=== PATIENT | male | born 1955 | race Caucasian/White ===

== ENCOUNTER 2023-02-27 16:32 | Inpatient (IN) | payer MEDICARE, MEDICAID ==
[~2023-02-27] VITALS: Ht 170.2 cm; Wt 65.8 kg
[2023-02-27] MEDS ORDERED: NS 1,850 ML in IV 1 EA IV ONE (16:55)
[2023-02-27 17:05] LABS: VENOUS BASE EXCESS 7.1 (-2.0-2.0); VENOUS HCO3 33.3 MMOL/L (23.0-27.0); VENOUS O2 SATURATION 49.4 % (60.0-80.0); VENOUS PARTIAL PRESSURE CO2 55.3 mmHg (38.0-50.0); VENOUS PARTIAL PRESSURE O2 30.7 mmHg (30.0-50.0); VENOUS PH 7.397 UNITS (7.330-7.430)
[2023-02-27 17:15] LABS: HEMATOCRIT 30.5 % (42.0-52.0); HEMOGLOBIN 9.7 g/dl (13.5-17.5); MEAN CORPUSCULAR HEMOGLOBIN 31.5 pg (27.0-33.0); MEAN CORPUSCULAR HGB CONC 31.8 g/dl (32.0-36.5); PLATELET COUNT, AUTOMATED 283 10^3/uL (150-450); RED BLOOD COUNT 3.08 10^6/uL (4.30-6.10); WHITE BLOOD COUNT 21.8 10^3/uL (4.0-10.0)
[2023-02-27 17:26] LABS: INR 1.34; PROTHROMBIN TIME 16.2 SECONDS (12.5-14.5)
[2023-02-27 17:28] LABS: PARTIAL THROMBOPLASTIN TIME 30.7 SECONDS (24.8-34.2)
[2023-02-27 17:40] LABS: ATYPICAL LYMPH 2 % (0-5); LYMPHOCYTES 6 % (16-44); METAMYELOCYTES 1 % (0-0); NEUTROPHILS 67 % (28-66); PLATELET ESTIMATE NORMAL (NORMAL)
[2023-02-27] MEDS ORDERED: cefTRIAXone SOD 2 GM in D5W MINI-BAG PLUS 50 ML IV ONE (17:40)
[2023-02-27] MEDS ORDERED: AZITHROMYCIN INJ 500 MG, VIAL MATE ADAPTER 1 EACH in D5W 250 ML IV ONE (17:40)
[2023-02-27 17:44] LABS: ALBUMIN 1.7 G/DL (3.2-5.2); ALKALINE PHOSPHATASE 226 U/L (46-116); ALT/SGPT 56 U/L (7.0-40); AMYLASE 108 U/L (30-118); AST/SGOT 51 U/L (<34); BILIRUBIN,DIRECT 0.7 MG/DL (<0.4); BLOOD UREA NITROGEN 26 MG/DL (9-23); CALCIUM LEVEL 13.4 MG/DL (8.3-10.6); CARBON DIOXIDE LEVEL 36 MMOL/L (20-31); CHLORIDE LEVEL 96 MMOL/L (98-107); GLOMERULAR FILTRATION RATE > 60.0 (>49); GLUCOSE, FASTING 122 MG/DL (74-106); POTASSIUM SERUM 3.9 MMOL/L (3.5-5.1); SODIUM LEVEL 135 MMOL/L (136-145); TOTAL PROTEIN 6.2 G/DL (5.7-8.2)
[2023-02-27 17:50] LABS: PROCALCITONIN 0.57 ng/ml
[2023-02-27] MEDS ORDERED: DOXYCYCLINE HYCLATE 100 MG in D5W MINI-BAG PLUS 100 ML IV ONE (17:50)
[2023-02-27] MEDS ORDERED: MED REC IN PROGRESS XX SCH (18:40)
[2023-02-27] MEDS ORDERED: COMBIVENT RESPIMAT 100-20MCG INHALER 4GM INH PRN (18:50)
[2023-02-27] MEDS ORDERED: D 50CAP2 PO (19:07)
[2023-02-27] MEDS ORDERED: NADO20TA PO (19:07)
[2023-02-27] MEDS ORDERED: ALBU8.5H INH (19:07)
[2023-02-27] MEDS ORDERED: MAGN400T2 PO (19:07)
[2023-02-27] MEDS ORDERED: DOCU100C16 PO (19:07)
[2023-02-27] MEDS ORDERED: SIMVASTATIN 80 MG PO (19:07)
[2023-02-27] MEDS ORDERED: TAMS1CAP17 PO (19:07)
[2023-02-27] MEDS ORDERED: THIA100T22 PO (19:07)
[2023-02-27] MEDS ORDERED: SPIR100T3 PO (19:07)
[2023-02-27] MEDS ORDERED: GABA-1171 PO (19:07)
[2023-02-27] MEDS ORDERED: FINA5TAB2 PO (19:07)
[2023-02-27] MEDS ORDERED: SIMV (19:07)
[2023-02-27] MEDS ORDERED: FURO40TA2 PO (19:07)
[2023-02-27 19:29] LABS: APPEARANCE, URINE CLOUDY (CLEAR); BACTERIA, URINE AUTO 2+ (NEGATIVE); BILIRUBIN, URINE AUTO NEGATIVE (NEGATIVE); BLOOD, URINE BLOOD 3+ (NEGATIVE); COLOR, URINE AMBER (YELLOW); GLUCOSE, URINE (UA) AUTO NEGATIVE (NEGATIVE); KETONE, URINE AUTO NEGATIVE (NEGATIVE); LEUKOCYTE ESTERASE, URINE AUTO 3+ (NEGATIVE); NITRITE, URINE AUTO NEGATIVE (NEGATIVE); PROTEIN, URINE AUTO 1+ mg/dL (NEGATIVE); RBC, URINE AUTO TNTC /HPF (0-3); SPECIFIC GRAVITY URINE AUTO 1.016 (1.002-1.035); SQUAMOUS EPITHELIAL CELL UR AU 0 /HPF (0-6); WBC, URINE AUTO TNTC /HPF (0-3)
[2023-02-27] MEDS: NS 1,000 ML IV SCH ×2 (20:12→22:06)
[2023-02-27 20:17] LABS: THYROID STIMULATING HORMONE 1.316 uIU/ML (0.55-4.78)
[2023-02-27 20:18] LABS: FREE T4 1.28 NG/DL (0.89-1.76)
[2023-02-27] MEDS ORDERED: ALBUTEROL 90 MCG/ACT 8GM HFA INHALER INH PRN (21:00)
[2023-02-27] MEDS ORDERED: SIMVASTATIN 40 MG TAB PO SCH (21:00)
[2023-02-27] MEDS: DOXYCYCLINE HYCLATE 100MG TABLET PO SCH ×2 (21:00→21:16)
[2023-02-27] MEDS ORDERED: HOME MED LIST COMPLETE! XX SCH (21:00)
[2023-02-27] MEDS: GABAPENTIN 100 MG CAP PO SCH (21:15)
[2023-02-27] MEDS: guaiFENesin ER TABLET 600 MG TAB PO SCH (21:16)
[2023-02-28] VITALS (47 sets, daily range): BP systolic 82–109; BP diastolic 42–68; TEMP 96.1–97.8; O2SAT 89–99
[2023-02-28] MEDS: NS 1,000 ML IV SCH (03:44)
[2023-02-28] MEDS ORDERED: NS 500 ML IV ONE ×2 (04:10→06:00)
[2023-02-28] MEDS ORDERED: SODIUM CHLORIDE 0.9% 1000ML IV STA (05:12)
[2023-02-28 05:27] LABS: HEMATOCRIT 24.4 % (42.0-52.0); HEMOGLOBIN 7.6 g/dl (13.5-17.5); MEAN CORPUSCULAR HEMOGLOBIN 31.1 pg (27.0-33.0); MEAN CORPUSCULAR HGB CONC 31.1 g/dl (32.0-36.5); PLATELET COUNT, AUTOMATED 201 10^3/uL (150-450); RED BLOOD COUNT 2.44 10^6/uL (4.30-6.10); WHITE BLOOD COUNT 16.2 10^3/uL (4.0-10.0)
[2023-02-28 05:43] LABS: PROCALCITONIN 0.49 ng/ml
[2023-02-28 05:44] LABS: ALBUMIN 1.3 G/DL (3.2-5.2); ALKALINE PHOSPHATASE 187 U/L (46-116); ALT/SGPT 47 U/L (7.0-40); AST/SGOT 50 U/L (<34); BILIRUBIN,TOTAL 0.6 MG/DL (0.3-1.2); BLOOD UREA NITROGEN 21 MG/DL (9-23); CARBON DIOXIDE LEVEL 30 MMOL/L (20-31); CHLORIDE LEVEL 106 MMOL/L (98-107); CREATININE FOR GFR 0.59 MG/DL (0.70-1.30); GLOMERULAR FILTRATION RATE > 60.0 (>49); GLUCOSE, FASTING 107 MG/DL (74-106); POTASSIUM SERUM 3.5 MMOL/L (3.5-5.1); SODIUM LEVEL 140 MMOL/L (136-145); TOTAL PROTEIN 4.6 G/DL (5.7-8.2)
[2023-02-28 06:22] LABS: PERCENT SATURATION 6.5 % (19.7-50.0)
[2023-02-28 06:24] LABS: FERRITIN 61.3 NG/ML (10.5-307.3)
[2023-02-28 06:25] LABS: FOLATE 10.65 NG/ML (>5.4)
[2023-02-28 06:30] LABS: MAGNESIUM LEVEL 1.4 MG/DL (1.8-2.4)
[2023-02-28] MEDS ORDERED: VANCOMYCIN HCL 1,000 MG, VIAL MATE ADAPTER 1 EACH in D5W 250 ML IV ONE (09:00)
[2023-02-28] MEDS ORDERED: NADOLOL 20MG TABLET PO SCH (09:00)
[2023-02-28] MEDS ORDERED: TAMSULOSIN 0.4 MG CAP PO SCH (09:00)
[2023-02-28] MEDS ORDERED: ENOXAPARIN 40MG/0.4ML SYRINGE (J1650 PER 10MG) SC SCH (09:00)
[2023-02-28] MEDS ORDERED: FINASTERIDE 5MG TAB PO SCH (09:00)
[2023-02-28] MEDS: MAGNESIUM OXIDE 400MG TAB (MAG-OX) PO SCH (09:28)
[2023-02-28] MEDS: THIAMINE 100 MG TAB PO SCH (09:28)
[2023-02-28] MEDS: GABAPENTIN 100 MG CAP PO SCH ×3 (09:28→20:27)
[2023-02-28] MEDS: guaiFENesin ER TABLET 600 MG TAB PO SCH ×2 (09:28→20:27)
[2023-02-28] MEDS: guaiFENesin DM LIQ 10ML UD PO PRN (10:44)
[2023-02-28] MEDS ORDERED: NS 1,000 ML IV ONE ×3 (12:00→18:05)
[2023-02-28] MEDS: DOXYCYCLINE HYCLATE 100MG TABLET PO SCH ×2 (12:22→20:27)
[2023-02-28] MEDS: VANCOMYCIN HCL 1,000 MG, VIAL MATE ADAPTER 1 EACH in D5W 250 ML IV SCH (13:12)
[2023-02-28] MEDS: MAG SULF 1GM/100ML (MAG RUN) 1 GM in IV 1 EA IV SCH ×3 (13:12→15:28)
[2023-02-28 15:14] LABS: HEMATOCRIT 28.1 % (42.0-52.0); HEMOGLOBIN 8.8 g/dl (13.5-17.5)
[2023-02-28] MEDS: cefTRIAXone SOD 2 GM in D5W MINI-BAG PLUS 50 ML IV SCH (17:19)
[2023-03-01] VITALS (21 sets, daily range): BP systolic 100–116; BP diastolic 56–68; TEMP 97–98; O2SAT 89–96
[2023-03-01] MEDS: VANCOMYCIN HCL 1,000 MG, VIAL MATE ADAPTER 1 EACH in D5W 250 ML IV SCH (00:34)
[2023-03-01 04:28] LABS: BASO # 0.1 10^3/uL (0.0-0.2); BASO % 0.4 % (0.0-1.0); EOS # 0.3 10^3/uL (0.0-0.5); EOS % 1.7 % (0.0-3.0); HEMOGLOBIN 9.7 g/dl (13.5-17.5); LYMPH # 1.2 10^3/uL (1.5-5.0); LYMPH % 7.9 % (24.0-44.0); MEAN CORPUSCULAR HGB CONC 32.3 g/dl (32.0-36.5); MEAN CORPUSCULAR VOLUME 95.8 fl (80.0-96.0); MONO # 1.1 10^3/uL (0.0-0.8); MONO % 7.7 % (2.0-8.0); NEUTROPHILS # 11.8 10^3/uL (1.5-8.5); NEUTROPHILS % 80.9 % (36.0-66.0); PLATELET COUNT, AUTOMATED 218 10^3/uL (150-450); RED BLOOD COUNT 3.13 10^6/uL (4.30-6.10); WHITE BLOOD COUNT 14.5 10^3/uL (4.0-10.0)
[2023-03-01 04:57] LABS: ALBUMIN 1.2 G/DL (3.2-5.2); ALKALINE PHOSPHATASE 289 U/L (46-116); ALT/SGPT 81 U/L (7.0-40); AST/SGOT 118 U/L (<34); BILIRUBIN,TOTAL 0.6 MG/DL (0.3-1.2); BLOOD UREA NITROGEN 15 MG/DL (9-23); CALCIUM LEVEL 10.4 MG/DL (8.3-10.6); CARBON DIOXIDE LEVEL 26 MMOL/L (20-31); CHLORIDE LEVEL 109 MMOL/L (98-107); CREATININE FOR GFR 0.48 MG/DL (0.70-1.30); GLOMERULAR FILTRATION RATE > 60.0 (>49); GLUCOSE, FASTING 96 MG/DL (74-106); MAGNESIUM LEVEL 1.6 MG/DL (1.8-2.4); POTASSIUM SERUM 3.4 MMOL/L (3.5-5.1); SODIUM LEVEL 139 MMOL/L (136-145); TOTAL PROTEIN 4.6 G/DL (5.7-8.2)
[2023-03-01] MEDS: KCL 10MEQ/100ML SWI (KRUN) 10 MEQ in IV 1 EA IV SCH ×2 (05:35→06:46)
[2023-03-01] MEDS ORDERED: MAG SULF 1GM/100ML (MAG RUN) 1 GM in IV 1 EA IV ONE (06:00)
[2023-03-01] MEDS: THIAMINE 100 MG TAB PO SCH (09:14)
[2023-03-01] MEDS: MAGNESIUM OXIDE 400MG TAB (MAG-OX) PO SCH (09:14)
[2023-03-01] MEDS: GABAPENTIN 100 MG CAP PO SCH ×3 (09:14→20:04)
[2023-03-01] MEDS: DOXYCYCLINE HYCLATE 100MG TABLET PO SCH ×2 (09:14→20:04)
[2023-03-01] MEDS: guaiFENesin ER TABLET 600 MG TAB PO SCH ×2 (09:15→20:04)
[2023-03-01] MEDS: ENOXAPARIN 40MG/0.4ML SYRINGE (J1650 PER 10MG) SC SCH (10:58)
[2023-03-01] MEDS: VANCOMYCIN HCL 750 MG, VIAL MATE ADAPTER 1 EACH in D5W 250 ML IV SCH (14:44)
[2023-03-01] MEDS: cefTRIAXone SOD 2 GM in D5W MINI-BAG PLUS 50 ML IV SCH (18:11)
[2023-03-01 19:06] LABS: MYCOPLASMA PNEUMONIAE IgG 1559 U/mL (0-99); MYCOPLASMA PNEUMONIAE IgM <770 U/mL (0-769)
[2023-03-02] VITALS (12 sets, daily range): BP systolic 109–131; BP diastolic 58–77; TEMP 96.5–97.5; O2SAT 90–96
[2023-03-02] MEDS: VANCOMYCIN HCL 750 MG, VIAL MATE ADAPTER 1 EACH in D5W 250 ML IV SCH ×2 (01:28→13:22)
[2023-03-02] MEDS ORDERED: MAALOX 30 ML SUSP *UDC PO PRN (07:45)
[2023-03-02] MEDS: ENOXAPARIN 40MG/0.4ML SYRINGE (J1650 PER 10MG) SC SCH (09:30)
[2023-03-02] MEDS: THIAMINE 100 MG TAB PO SCH (09:30)
[2023-03-02] MEDS: DOXYCYCLINE HYCLATE 100MG TABLET PO SCH ×2 (09:30→22:31)
[2023-03-02] MEDS: GABAPENTIN 100 MG CAP PO SCH ×3 (09:30→22:31)
[2023-03-02] MEDS: guaiFENesin ER TABLET 600 MG TAB PO SCH ×2 (09:30→22:31)
[2023-03-02] MEDS: MAGNESIUM OXIDE 400MG TAB (MAG-OX) PO SCH (09:31)
[2023-03-02] MEDS: PANTOPRAZOLE 40MG TAB (PROTONIX) PO SCH ×2 (09:31→22:32)
[2023-03-02 09:40] LABS: BASO # 0.1 10^3/uL (0.0-0.2); BASO % 0.5 % (0.0-1.0); EOS # 0.2 10^3/uL (0.0-0.5); EOS % 1.5 % (0.0-3.0); HEMATOCRIT 30.8 % (42.0-52.0); HEMOGLOBIN 9.8 g/dl (13.5-17.5); LYMPH # 1.4 10^3/uL (1.5-5.0); MEAN CORPUSCULAR HEMOGLOBIN 30.3 pg (27.0-33.0); MEAN CORPUSCULAR HGB CONC 31.8 g/dl (32.0-36.5); MEAN CORPUSCULAR VOLUME 95.4 fl (80.0-96.0); MONO # 0.8 10^3/uL (0.0-0.8); MONO % 5.6 % (2.0-8.0); NEUTROPHILS # 11.7 10^3/uL (1.5-8.5); NEUTROPHILS % 80.9 % (36.0-66.0); PLATELET COUNT, AUTOMATED 247 10^3/uL (150-450); RED BLOOD COUNT 3.23 10^6/uL (4.30-6.10); WHITE BLOOD COUNT 14.4 10^3/uL (4.0-10.0)
[2023-03-02 10:07] LABS: BLOOD UREA NITROGEN 11 MG/DL (9-23); CALCIUM LEVEL 10.9 MG/DL (8.3-10.6); CARBON DIOXIDE LEVEL 28 MMOL/L (20-31); CHLORIDE LEVEL 105 MMOL/L (98-107); CREATININE FOR GFR 0.47 MG/DL (0.70-1.30); GLOMERULAR FILTRATION RATE > 60.0 (>49); GLUCOSE, FASTING 110 MG/DL (74-106); MAGNESIUM LEVEL 1.4 MG/DL (1.8-2.4); POTASSIUM SERUM 3.3 MMOL/L (3.5-5.1); SODIUM LEVEL 138 MMOL/L (136-145)
[2023-03-02] MEDS: ACETAMINOPHEN TAB 650MG DOSE (2X325MG) PO PRN ×2 (13:22→19:51)
[2023-03-02] MEDS: cefTRIAXone SOD 2 GM in D5W MINI-BAG PLUS 50 ML IV SCH (17:43)
[2023-03-02] MEDS ORDERED: POTASSIUM CHLORIDE 10% LIQ 20MEQ/15ML UDC PO ONE (18:00)
[2023-03-02] MEDS: MAG SULF 1GM/100ML (MAG RUN) 1 GM in IV 1 EA IV SCH ×4 (18:28→23:56)
[2023-03-03] VITALS (8 sets, daily range): BP systolic 89–137; BP diastolic 52–85; TEMP 96.5–97.2; O2SAT 93–96
[2023-03-03] MEDS: VANCOMYCIN HCL 750 MG, VIAL MATE ADAPTER 1 EACH in D5W 250 ML IV SCH ×2 (02:18→14:04)
[2023-03-03 06:14] LABS: BASO # 0.1 10^3/uL (0.0-0.2); BASO % 0.5 % (0.0-1.0); EOS # 0.2 10^3/uL (0.0-0.5); EOS % 1.6 % (0.0-3.0); HEMATOCRIT 31.1 % (42.0-52.0); LYMPH # 1.2 10^3/uL (1.5-5.0); LYMPH % 13.3 % (24.0-44.0); MEAN CORPUSCULAR HEMOGLOBIN 30.7 pg (27.0-33.0); MEAN CORPUSCULAR HGB CONC 32.2 g/dl (32.0-36.5); MEAN CORPUSCULAR VOLUME 95.4 fl (80.0-96.0); MONO # 0.6 10^3/uL (0.0-0.8); MONO % 6.6 % (2.0-8.0); NEUTROPHILS # 7.1 10^3/uL (1.5-8.5); NEUTROPHILS % 76.1 % (36.0-66.0); PLATELET COUNT, AUTOMATED 205 10^3/uL (150-450); RED BLOOD COUNT 3.26 10^6/uL (4.30-6.10); WHITE BLOOD COUNT 9.3 10^3/uL (4.0-10.0)
[2023-03-03 06:41] LABS: ALBUMIN 1.4 G/DL (3.2-5.2); ALKALINE PHOSPHATASE 232 U/L (46-116); ALT/SGPT 70 U/L (7.0-40); AST/SGOT 47 U/L (<34); BILIRUBIN,TOTAL 0.4 MG/DL (0.3-1.2); BLOOD UREA NITROGEN 8 MG/DL (9-23); CALCIUM LEVEL 10.3 MG/DL (8.3-10.6); CARBON DIOXIDE LEVEL 29 MMOL/L (20-31); CHLORIDE LEVEL 105 MMOL/L (98-107); CREATININE FOR GFR 0.49 MG/DL (0.70-1.30); GLOMERULAR FILTRATION RATE > 60.0 (>49); GLUCOSE, FASTING 98 MG/DL (74-106); POTASSIUM SERUM 3.8 MMOL/L (3.5-5.1); SODIUM LEVEL 138 MMOL/L (136-145)
[2023-03-03 09:15] LABS: MAGNESIUM LEVEL 2.1 MG/DL (1.8-2.4)
[2023-03-03] MEDS: MIDODRINE 2.5 MG TAB PO SCH ×3 (10:09→16:14)
[2023-03-03] MEDS: ENOXAPARIN 40MG/0.4ML SYRINGE (J1650 PER 10MG) SC SCH (10:09)
[2023-03-03] MEDS: SPIRONOLACTONE 25 MG TAB PO SCH (10:10)
[2023-03-03] MEDS: MAGNESIUM OXIDE 400MG TAB (MAG-OX) PO SCH (10:10)
[2023-03-03] MEDS: ACETAMINOPHEN TAB 650MG DOSE (2X325MG) PO PRN (10:10)
[2023-03-03] MEDS: THIAMINE 100 MG TAB PO SCH (10:11)
[2023-03-03] MEDS: TAMSULOSIN 0.4 MG CAP PO SCH (10:11)
[2023-03-03] MEDS: DOXYCYCLINE HYCLATE 100MG TABLET PO SCH ×2 (10:11→20:26)
[2023-03-03] MEDS: GABAPENTIN 100 MG CAP PO SCH ×3 (10:11→20:26)
[2023-03-03] MEDS: guaiFENesin ER TABLET 600 MG TAB PO SCH ×2 (10:11→20:26)
[2023-03-03] MEDS: FUROSEMIDE 20 MG TAB PO SCH (10:11)
[2023-03-03] MEDS: PANTOPRAZOLE 40MG TAB (PROTONIX) PO SCH ×2 (10:12→20:26)
[2023-03-03] MEDS: FINASTERIDE 5MG TAB PO SCH (10:12)
[2023-03-03] MEDS ORDERED: ISOVUE-370 76% 100ML VIAL As Ordered ONE (10:16)
[2023-03-03] MEDS: cefTRIAXone SOD 2 GM in D5W MINI-BAG PLUS 50 ML IV SCH (18:40)
[2023-03-03] MEDS ORDERED: MIDODRINE 5 MG TAB PO ONE (21:00)
[2023-03-04 01:30] VITALS: BP 102/64
[2023-03-04] MEDS: VANCOMYCIN HCL 750 MG, VIAL MATE ADAPTER 1 EACH in D5W 250 ML IV SCH (01:51)
[2023-03-04] MEDS: ACETAMINOPHEN TAB 650MG DOSE (2X325MG) PO PRN ×3 (03:35→20:48)
[2023-03-04 05:44] VITALS: BP 105/66; TEMP 97.3; O2SAT 94
[2023-03-04 06:10] LABS: BASO # 0.1 10^3/uL (0.0-0.2); BASO % 0.5 % (0.0-1.0); EOS # 0.1 10^3/uL (0.0-0.5); EOS % 1.2 % (0.0-3.0); HEMATOCRIT 29.9 % (42.0-52.0); HEMOGLOBIN 9.4 g/dl (13.5-17.5); LYMPH # 1.4 10^3/uL (1.5-5.0); LYMPH % 14.1 % (24.0-44.0); MEAN CORPUSCULAR HEMOGLOBIN 30.3 pg (27.0-33.0); MEAN CORPUSCULAR HGB CONC 31.4 g/dl (32.0-36.5); MEAN CORPUSCULAR VOLUME 96.5 fl (80.0-96.0); MONO # 0.6 10^3/uL (0.0-0.8); MONO % 6.2 % (2.0-8.0); NEUTROPHILS # 7.8 10^3/uL (1.5-8.5); NEUTROPHILS % 76.9 % (36.0-66.0); PLATELET COUNT, AUTOMATED 192 10^3/uL (150-450); WHITE BLOOD COUNT 10.1 10^3/uL (4.0-10.0)
[2023-03-04 06:30] LABS: ALBUMIN 1.4 G/DL (3.2-5.2); ALKALINE PHOSPHATASE 193 U/L (46-116); ALT/SGPT 50 U/L (7.0-40); AST/SGOT 33 U/L (<34); BILIRUBIN,TOTAL 0.3 MG/DL (0.3-1.2); BLOOD UREA NITROGEN 7 MG/DL (9-23); CALCIUM LEVEL 10.1 MG/DL (8.3-10.6); CARBON DIOXIDE LEVEL 32 MMOL/L (20-31); CHLORIDE LEVEL 103 MMOL/L (98-107); GLOMERULAR FILTRATION RATE > 60.0 (>49); GLUCOSE, FASTING 88 MG/DL (74-106); POTASSIUM SERUM 3.5 MMOL/L (3.5-5.1); SODIUM LEVEL 139 MMOL/L (136-145); TOTAL PROTEIN 4.8 G/DL (5.7-8.2)
[2023-03-04] MEDS: THIAMINE 100 MG TAB PO SCH (08:20)
[2023-03-04] MEDS: GABAPENTIN 100 MG CAP PO SCH ×3 (08:20→20:47)
[2023-03-04] MEDS: FINASTERIDE 5MG TAB PO SCH (08:20)
[2023-03-04] MEDS: TAMSULOSIN 0.4 MG CAP PO SCH (08:21)
[2023-03-04] MEDS: PANTOPRAZOLE 40MG TAB (PROTONIX) PO SCH ×2 (08:21→20:48)
[2023-03-04] MEDS: MIDODRINE 2.5 MG TAB PO SCH ×3 (08:22→15:21)
[2023-03-04] MEDS: guaiFENesin ER TABLET 600 MG TAB PO SCH ×2 (08:22→20:48)
[2023-03-04] MEDS: MAGNESIUM OXIDE 400MG TAB (MAG-OX) PO SCH (08:23)
[2023-03-04] MEDS: ENOXAPARIN 40MG/0.4ML SYRINGE (J1650 PER 10MG) SC SCH (08:23)
[2023-03-04] MEDS: DOXYCYCLINE HYCLATE 100MG TABLET PO SCH ×2 (08:23→20:48)
[2023-03-04] MEDS: FUROSEMIDE 20 MG TAB PO SCH (08:24)
[2023-03-04] MEDS: SPIRONOLACTONE 25 MG TAB PO SCH (08:24)
[2023-03-04] MEDS ORDERED: VANCOMYCIN HCL 750 MG, VIAL MATE ADAPTER 1 EACH in D5W 250 ML IV SCH ×6 (15:00)
[2023-03-04] MEDS ORDERED: VANCOMYCIN HCL 1,000 MG, VIAL MATE ADAPTER 1 EACH in D5W 250 ML IV SCH (15:00)
[2023-03-04 15:22] VITALS: BP 112/68; TEMP 97.3; O2SAT 96
[2023-03-04 18:07] LABS: BODY FLUID CULTURE Not indicated. (.); LEGIONELLA ANTIGEN URINE Negative (Negative); ORGANISM ID Not indicated. (.); SPECIMEN SOURCE Urine (.); URINE STREP PNEUMONIAE ANTIGEN Negative (Negative)
[2023-03-04] MEDS: cefTRIAXone SOD 2 GM in D5W MINI-BAG PLUS 50 ML IV SCH (18:36)
[2023-03-04 20:45] VITALS: BP 129/69; TEMP 97.3; O2SAT 95
[2023-03-05 05:26] VITALS: BP 127/76; TEMP 97; O2SAT 97
[2023-03-05 07:13] LABS: BASO # 0.1 10^3/uL (0.0-0.2); BASO % 0.6 % (0.0-1.0); EOS # 0.1 10^3/uL (0.0-0.5); EOS % 1.8 % (0.0-3.0); HEMATOCRIT 31.8 % (42.0-52.0); HEMOGLOBIN 9.9 g/dl (13.5-17.5); LYMPH # 1.2 10^3/uL (1.5-5.0); LYMPH % 15.8 % (24.0-44.0); MEAN CORPUSCULAR HEMOGLOBIN 30.2 pg (27.0-33.0); MEAN CORPUSCULAR HGB CONC 31.1 g/dl (32.0-36.5); MONO # 0.5 10^3/uL (0.0-0.8); MONO % 6.6 % (2.0-8.0); NEUTROPHILS # 5.8 10^3/uL (1.5-8.5); NEUTROPHILS % 74.1 % (36.0-66.0); PLATELET COUNT, AUTOMATED 182 10^3/uL (150-450); RED BLOOD COUNT 3.28 10^6/uL (4.30-6.10); WHITE BLOOD COUNT 7.8 10^3/uL (4.0-10.0)
[2023-03-05 07:33] LABS: ALBUMIN 1.5 G/DL (3.2-5.2); ALKALINE PHOSPHATASE 184 U/L (46-116); ALT/SGPT 41 U/L (7.0-40); AST/SGOT 27 U/L (<34); BILIRUBIN,TOTAL 0.3 MG/DL (0.3-1.2); BLOOD UREA NITROGEN 6 MG/DL (9-23); CALCIUM LEVEL 11.1 MG/DL (8.3-10.6); CARBON DIOXIDE LEVEL 34 MMOL/L (20-31); CHLORIDE LEVEL 103 MMOL/L (98-107); CREATININE FOR GFR 0.61 MG/DL (0.70-1.30); GLOMERULAR FILTRATION RATE > 60.0 (>49); GLUCOSE, FASTING 86 MG/DL (74-106); POTASSIUM SERUM 3.5 MMOL/L (3.5-5.1); SODIUM LEVEL 139 MMOL/L (136-145)
[2023-03-05] MEDS: MIRALAX *UNIT DOSE* 17GM PACKET PO SCH ×2 (09:00→20:31)
[2023-03-05] MEDS: METAMUCIL (PSYLLIUM) PACKET PO SCH ×2 (09:00→20:31)
[2023-03-05] MEDS: ENOXAPARIN 40MG/0.4ML SYRINGE (J1650 PER 10MG) SC SCH (09:19)
[2023-03-05] MEDS: MIDODRINE 2.5 MG TAB PO SCH ×3 (09:19→17:22)
[2023-03-05] MEDS: guaiFENesin ER TABLET 600 MG TAB PO SCH ×2 (09:19→20:35)
[2023-03-05] MEDS: THIAMINE 100 MG TAB PO SCH (09:19)
[2023-03-05] MEDS: SPIRONOLACTONE 25 MG TAB PO SCH (09:19)
[2023-03-05] MEDS: PANTOPRAZOLE 40MG TAB (PROTONIX) PO SCH ×2 (09:20→20:35)
[2023-03-05] MEDS: TAMSULOSIN 0.4 MG CAP PO SCH (09:20)
[2023-03-05] MEDS: MAGNESIUM OXIDE 400MG TAB (MAG-OX) PO SCH (09:20)
[2023-03-05] MEDS: GABAPENTIN 100 MG CAP PO SCH ×3 (09:20→20:36)
[2023-03-05] MEDS: FUROSEMIDE 20 MG TAB PO SCH (09:20)
[2023-03-05] MEDS: ACETAMINOPHEN TAB 650MG DOSE (2X325MG) PO PRN ×2 (09:21→20:47)
[2023-03-05] MEDS: FINASTERIDE 5MG TAB PO SCH (09:22)
[2023-03-05 14:00] VITALS: BP 107/66; TEMP 97.2; O2SAT 97
[2023-03-05 14:41] LABS: PTH INTACT 7.1 PG/ML (18.5-88.0)
[2023-03-05 14:46] LABS: TOTAL 25(OH) VITAMIN D 132.2 NG/ML (20.0-100.0)
[2023-03-05] MEDS: cefTRIAXone SOD 2 GM in D5W MINI-BAG PLUS 50 ML IV SCH (17:22)
[2023-03-05 21:57] VITALS: BP 108/65; TEMP 97.3; O2SAT 95
[2023-03-06 06:10] LABS: BASO # 0.1 10^3/uL (0.0-0.2); BASO % 0.7 % (0.0-1.0); EOS # 0.1 10^3/uL (0.0-0.5); EOS % 1.9 % (0.0-3.0); HEMATOCRIT 32.6 % (42.0-52.0); HEMOGLOBIN 10.2 g/dl (13.5-17.5); LYMPH # 1.3 10^3/uL (1.5-5.0); LYMPH % 19.3 % (24.0-44.0); MEAN CORPUSCULAR HEMOGLOBIN 30.4 pg (27.0-33.0); MEAN CORPUSCULAR HGB CONC 31.3 g/dl (32.0-36.5); MEAN CORPUSCULAR VOLUME 97.3 fl (80.0-96.0); MONO # 0.4 10^3/uL (0.0-0.8); MONO % 5.3 % (2.0-8.0); NEUTROPHILS # 4.9 10^3/uL (1.5-8.5); NEUTROPHILS % 71.9 % (36.0-66.0); PLATELET COUNT, AUTOMATED 170 10^3/uL (150-450); RED BLOOD COUNT 3.35 10^6/uL (4.30-6.10); WHITE BLOOD COUNT 6.8 10^3/uL (4.0-10.0)
[2023-03-06 06:37] LABS: ALBUMIN 1.5 G/DL (3.2-5.2); ALKALINE PHOSPHATASE 176 U/L (46-116); ALT/SGPT 34 U/L (7.0-40); AST/SGOT 25 U/L (<34); BILIRUBIN,TOTAL 0.3 MG/DL (0.3-1.2); BLOOD UREA NITROGEN 8 MG/DL (9-23); CARBON DIOXIDE LEVEL 36 MMOL/L (20-31); CHLORIDE LEVEL 102 MMOL/L (98-107); CREATININE FOR GFR 0.72 MG/DL (0.70-1.30); GLOMERULAR FILTRATION RATE > 60.0 (>49); GLUCOSE, FASTING 82 MG/DL (74-106); POTASSIUM SERUM 3.6 MMOL/L (3.5-5.1); SODIUM LEVEL 139 MMOL/L (136-145); TOTAL PROTEIN 5.1 G/DL (5.7-8.2)
[2023-03-06 06:43] VITALS: BP 111/64; TEMP 97.3; O2SAT 92
[2023-03-06] MEDS: MIRALAX *UNIT DOSE* 17GM PACKET PO SCH ×2 (09:00→20:16)
[2023-03-06] MEDS: METAMUCIL (PSYLLIUM) PACKET PO SCH ×2 (09:00→20:16)
[2023-03-06] MEDS: MAGNESIUM OXIDE 400MG TAB (MAG-OX) PO SCH (09:29)
[2023-03-06] MEDS: PANTOPRAZOLE 40MG TAB (PROTONIX) PO SCH ×2 (09:29→20:16)
[2023-03-06] MEDS: guaiFENesin ER TABLET 600 MG TAB PO SCH ×2 (09:29→20:16)
[2023-03-06] MEDS: FUROSEMIDE 20 MG TAB PO SCH (09:29)
[2023-03-06] MEDS: TAMSULOSIN 0.4 MG CAP PO SCH (09:29)
[2023-03-06] MEDS: THIAMINE 100 MG TAB PO SCH (09:29)
[2023-03-06] MEDS: SPIRONOLACTONE 25 MG TAB PO SCH (09:29)
[2023-03-06] MEDS: FINASTERIDE 5MG TAB PO SCH (09:29)
[2023-03-06] MEDS: ENOXAPARIN 40MG/0.4ML SYRINGE (J1650 PER 10MG) SC SCH (09:29)
[2023-03-06] MEDS: GABAPENTIN 100 MG CAP PO SCH ×3 (09:29→20:16)
[2023-03-06] MEDS ORDERED: NS 500 ML IV SCH (12:00)
[2023-03-06] MEDS: predniSONE 20 MG TAB PO SCH (12:31)
[2023-03-06] MEDS: ACETAMINOPHEN TAB 650MG DOSE (2X325MG) PO PRN (12:46)
[2023-03-06 14:00] VITALS: BP 112/69; TEMP 97.2; O2SAT 95
[2023-03-06] MEDS ORDERED: ZOLEDRONIC ACID 4 MG in IV 1 EA IV ONE (15:00)
[2023-03-06] MEDS: cefTRIAXone SOD 2 GM in D5W MINI-BAG PLUS 50 ML IV SCH (16:58)
[2023-03-06 21:14] VITALS: BP 122/65; TEMP 97.2; O2SAT 96
[2023-03-07 05:57] VITALS: BP 118/65; TEMP 97.9; O2SAT 95
[2023-03-07 06:47] LABS: BASO % 0.3 % (0.0-1.0); HEMATOCRIT 27.9 % (42.0-52.0); HEMOGLOBIN 8.9 g/dl (13.5-17.5); LYMPH # 1.3 10^3/uL (1.5-5.0); LYMPH % 17.2 % (24.0-44.0); MEAN CORPUSCULAR HEMOGLOBIN 30.8 pg (27.0-33.0); MEAN CORPUSCULAR HGB CONC 31.9 g/dl (32.0-36.5); MEAN CORPUSCULAR VOLUME 96.5 fl (80.0-96.0); MONO # 0.4 10^3/uL (0.0-0.8); MONO % 6.1 % (2.0-8.0); NEUTROPHILS # 5.5 10^3/uL (1.5-8.5); NEUTROPHILS % 75.7 % (36.0-66.0); PLATELET COUNT, AUTOMATED 170 10^3/uL (150-450); RED BLOOD COUNT 2.89 10^6/uL (4.30-6.10); WHITE BLOOD COUNT 7.3 10^3/uL (4.0-10.0)
[2023-03-07 07:13] LABS: ALBUMIN 1.6 G/DL (3.2-5.2); ALKALINE PHOSPHATASE 167 U/L (46-116); ALT/SGPT 27 U/L (7.0-40); AST/SGOT 22 U/L (<34); BILIRUBIN,TOTAL 0.2 MG/DL (0.3-1.2); BLOOD UREA NITROGEN 12 MG/DL (9-23); CALCIUM LEVEL 10.8 MG/DL (8.3-10.6); CARBON DIOXIDE LEVEL 33 MMOL/L (20-31); CHLORIDE LEVEL 101 MMOL/L (98-107); CREATININE FOR GFR 0.73 MG/DL (0.70-1.30); GLOMERULAR FILTRATION RATE > 60.0 (>49); GLUCOSE, FASTING 114 MG/DL (74-106); POTASSIUM SERUM 3.6 MMOL/L (3.5-5.1); SODIUM LEVEL 137 MMOL/L (136-145)
[2023-03-07] MEDS: MIRALAX *UNIT DOSE* 17GM PACKET PO SCH ×2 (09:00→20:59)
[2023-03-07] MEDS: METAMUCIL (PSYLLIUM) PACKET PO SCH ×2 (09:00→20:59)
[2023-03-07 09:11] LABS: CHLAMYDIA PNEUMONIAE IgG <1:100 (< 1:100); CHLAMYDIA PNEUMONIAE IgM <1:10 (< 1:10); CHLAMYDIA PSITTACI IgG <1:100 (< 1:100); CHLAMYDIA PSITTACI IgM <1:10 (< 1:10); CHLAMYDIA TRACHOMATIS IgG <1:100 (< 1:100); CHLAMYDIA TRACHOMATIS IgM <1:10 (< 1:10)
[2023-03-07] MEDS: ENOXAPARIN 40MG/0.4ML SYRINGE (J1650 PER 10MG) SC SCH (09:13)
[2023-03-07] MEDS: guaiFENesin ER TABLET 600 MG TAB PO SCH ×2 (09:13→20:58)
[2023-03-07] MEDS: FINASTERIDE 5MG TAB PO SCH (09:13)
[2023-03-07] MEDS: PANTOPRAZOLE 40MG TAB (PROTONIX) PO SCH ×2 (09:13→20:57)
[2023-03-07] MEDS: MAGNESIUM OXIDE 400MG TAB (MAG-OX) PO SCH (09:13)
[2023-03-07] MEDS: predniSONE 20 MG TAB PO SCH (09:13)
[2023-03-07] MEDS: TAMSULOSIN 0.4 MG CAP PO SCH (09:13)
[2023-03-07] MEDS: GABAPENTIN 100 MG CAP PO SCH ×3 (09:13→20:58)
[2023-03-07] MEDS: THIAMINE 100 MG TAB PO SCH (09:14)
[2023-03-07] MEDS: ACETAMINOPHEN TAB 650MG DOSE (2X325MG) PO PRN (11:39)
[2023-03-07 14:00] VITALS: BP 117/64; TEMP 97.5; O2SAT 95
[2023-03-07 20:00] VITALS: BP 120/64; TEMP 97.8; O2SAT 96
[2023-03-08 05:59] VITALS: BP 110/54; TEMP 97.9; O2SAT 96
[2023-03-08 08:17] LABS: BASO % 0.3 % (0.0-1.0); HEMATOCRIT 31.3 % (42.0-52.0); LYMPH % 21.4 % (24.0-44.0); MEAN CORPUSCULAR HGB CONC 31.9 g/dl (32.0-36.5); MEAN CORPUSCULAR VOLUME 96.9 fl (80.0-96.0); MONO # 0.4 10^3/uL (0.0-0.8); NEUTROPHILS # 6.8 10^3/uL (1.5-8.5); NEUTROPHILS % 73.9 % (36.0-66.0); PLATELET COUNT, AUTOMATED 192 10^3/uL (150-450); RED BLOOD COUNT 3.23 10^6/uL (4.30-6.10); WHITE BLOOD COUNT 9.2 10^3/uL (4.0-10.0)
[2023-03-08 08:42] LABS: ALBUMIN 1.9 G/DL (3.2-5.2); ALKALINE PHOSPHATASE 188 U/L (46-116); ALT/SGPT 31 U/L (7.0-40); AST/SGOT 31 U/L (<34); BILIRUBIN,TOTAL 0.3 MG/DL (0.3-1.2); BLOOD UREA NITROGEN 15 MG/DL (9-23); CARBON DIOXIDE LEVEL 31 MMOL/L (20-31); CHLORIDE LEVEL 100 MMOL/L (98-107); CREATININE FOR GFR 0.71 MG/DL (0.70-1.30); GLOMERULAR FILTRATION RATE > 60.0 (>49); GLUCOSE, FASTING 103 MG/DL (74-106); POTASSIUM SERUM 3.2 MMOL/L (3.5-5.1); SODIUM LEVEL 137 MMOL/L (136-145); TOTAL PROTEIN 5.7 G/DL (5.7-8.2)
[2023-03-08] MEDS: METAMUCIL (PSYLLIUM) PACKET PO SCH ×2 (09:00→21:40)
[2023-03-08] MEDS: SPIRONOLACTONE 25 MG TAB PO SCH (09:00)
[2023-03-08] MEDS: FUROSEMIDE 20 MG TAB PO SCH (09:00)
[2023-03-08] MEDS: MIRALAX *UNIT DOSE* 17GM PACKET PO SCH ×2 (09:00→21:40)
[2023-03-08] MEDS: ENOXAPARIN 40MG/0.4ML SYRINGE (J1650 PER 10MG) SC SCH (09:38)
[2023-03-08] MEDS: TAMSULOSIN 0.4 MG CAP PO SCH (09:40)
[2023-03-08] MEDS: guaiFENesin ER TABLET 600 MG TAB PO SCH ×2 (09:41→21:41)
[2023-03-08] MEDS: PANTOPRAZOLE 40MG TAB (PROTONIX) PO SCH ×2 (09:42→21:41)
[2023-03-08] MEDS: predniSONE 20 MG TAB PO SCH (09:42)
[2023-03-08] MEDS: GABAPENTIN 100 MG CAP PO SCH ×3 (09:42→21:41)
[2023-03-08] MEDS: THIAMINE 100 MG TAB PO SCH (09:42)
[2023-03-08] MEDS: FINASTERIDE 5MG TAB PO SCH (09:42)
[2023-03-08] MEDS: MAGNESIUM OXIDE 400MG TAB (MAG-OX) PO SCH (09:44)
[2023-03-08] MEDS ORDERED: POTASSIUM CHLORIDE 10MEQ SR TABLET PO ONE (11:00)
[2023-03-08] MEDS: CALCITONIN SALMON (MIACALCIN) 400INTERNATIONAL UNITS/2ML VIAL SQ SCH ×2 (13:20→21:00)
[2023-03-08 14:00] VITALS: BP 115/62; TEMP 97.5; O2SAT 94
[2023-03-08] MEDS ORDERED: ZOLEDRONIC ACID 4 MG in IV 1 EA IV ONE (14:00)
[2023-03-08] MEDS: ACETAMINOPHEN TAB 650MG DOSE (2X325MG) PO PRN (14:43)
[2023-03-08] MEDS ORDERED: NS 500 ML IV SCH (15:30)
[2023-03-08] MEDS: ONDANSETRON 4MG ORAL DISINTEGRATING TAB SL PRN (17:30)
[2023-03-08 20:32] VITALS: BP 109/59; TEMP 97.5; O2SAT 94
[2023-03-09 06:32] VITALS: BP 106/60; TEMP 97.5; O2SAT 95
[2023-03-09 07:53] LABS: IONIZED CALCIUM 5.4 MG/DL (4.5-5.3)
[2023-03-09 08:03] LABS: HEMATOCRIT 31.1 % (42.0-52.0); HEMOGLOBIN 9.7 g/dl (13.5-17.5); MEAN CORPUSCULAR HEMOGLOBIN 30.4 pg (27.0-33.0); MEAN CORPUSCULAR HGB CONC 31.2 g/dl (32.0-36.5); MEAN CORPUSCULAR VOLUME 97.5 fl (80.0-96.0); PLATELET COUNT, AUTOMATED 194 10^3/uL (150-450); RED BLOOD COUNT 3.19 10^6/uL (4.30-6.10); WHITE BLOOD COUNT 13.3 10^3/uL (4.0-10.0)
[2023-03-09 08:23] LABS: ALBUMIN 1.9 G/DL (3.2-5.2); ALKALINE PHOSPHATASE 189 U/L (46-116); ALT/SGPT 37 U/L (7.0-40); AST/SGOT 36 U/L (<34); BILIRUBIN,TOTAL 0.3 MG/DL (0.3-1.2); BLOOD UREA NITROGEN 15 MG/DL (9-23); CALCIUM LEVEL 10.1 MG/DL (8.3-10.6); CARBON DIOXIDE LEVEL 30 MMOL/L (20-31); CHLORIDE LEVEL 104 MMOL/L (98-107); CREATININE FOR GFR 0.64 MG/DL (0.70-1.30); GLOMERULAR FILTRATION RATE > 60.0 (>49); GLUCOSE, FASTING 98 MG/DL (74-106); POTASSIUM SERUM 3.8 MMOL/L (3.5-5.1); SODIUM LEVEL 138 MMOL/L (136-145); TOTAL PROTEIN 5.7 G/DL (5.7-8.2)
[2023-03-09] MEDS: METAMUCIL (PSYLLIUM) PACKET PO SCH ×2 (09:00→20:57)
[2023-03-09] MEDS: MIRALAX *UNIT DOSE* 17GM PACKET PO SCH ×2 (09:00→20:57)
[2023-03-09] MEDS: CALCITONIN SALMON (MIACALCIN) 400INTERNATIONAL UNITS/2ML VIAL SQ SCH ×2 (09:39→21:07)
[2023-03-09] MEDS: PANTOPRAZOLE 40MG TAB (PROTONIX) PO SCH ×2 (09:40→21:07)
[2023-03-09] MEDS: GABAPENTIN 100 MG CAP PO SCH ×3 (09:40→21:07)
[2023-03-09] MEDS: ENOXAPARIN 40MG/0.4ML SYRINGE (J1650 PER 10MG) SC SCH (09:40)
[2023-03-09] MEDS: TAMSULOSIN 0.4 MG CAP PO SCH (09:40)
[2023-03-09] MEDS: THIAMINE 100 MG TAB PO SCH (09:40)
[2023-03-09] MEDS: guaiFENesin ER TABLET 600 MG TAB PO SCH ×2 (09:40→21:07)
[2023-03-09] MEDS: MAGNESIUM OXIDE 400MG TAB (MAG-OX) PO SCH (09:40)
[2023-03-09] MEDS: FINASTERIDE 5MG TAB PO SCH (09:40)
[2023-03-09 14:05] VITALS: BP 100/63; TEMP 97.3; O2SAT 95
[2023-03-09] MEDS: ONDANSETRON 4MG ORAL DISINTEGRATING TAB SL PRN (14:29)
[2023-03-09 22:00] VITALS: BP 99/58; TEMP 97.9; O2SAT 92
[2023-03-10] MEDS: ONDANSETRON 4MG ORAL DISINTEGRATING TAB SL PRN (04:47)
[2023-03-10 06:00] VITALS: BP 99/58; TEMP 97.7; O2SAT 93
[2023-03-10 07:14] LABS: IONIZED CALCIUM 5.1 MG/DL (4.5-5.3)
[2023-03-10 07:49] LABS: ALBUMIN 1.6 G/DL (3.2-5.2); ALKALINE PHOSPHATASE 174 U/L (46-116); ALT/SGPT 32 U/L (7.0-40); AST/SGOT 35 U/L (<34); BILIRUBIN,TOTAL 0.6 MG/DL (0.3-1.2); BLOOD UREA NITROGEN 10 MG/DL (9-23); CARBON DIOXIDE LEVEL 30 MMOL/L (20-31); CHLORIDE LEVEL 104 MMOL/L (98-107); CREATININE FOR GFR 0.69 MG/DL (0.70-1.30); GLOMERULAR FILTRATION RATE > 60.0 (>49); GLUCOSE, FASTING 85 MG/DL (74-106); SODIUM LEVEL 136 MMOL/L (136-145); TOTAL PROTEIN 4.8 G/DL (5.7-8.2)
[2023-03-10 08:44] LABS: HEMATOCRIT 25.7 % (42.0-52.0); HEMOGLOBIN 8.1 g/dl (13.5-17.5); MEAN CORPUSCULAR HEMOGLOBIN 30.6 pg (27.0-33.0); MEAN CORPUSCULAR HGB CONC 31.5 g/dl (32.0-36.5); PLATELET COUNT, AUTOMATED 141 10^3/uL (150-450); RED BLOOD COUNT 2.65 10^6/uL (4.30-6.10); WHITE BLOOD COUNT 7.7 10^3/uL (4.0-10.0)
[2023-03-10] MEDS: FUROSEMIDE 20 MG TAB PO SCH (09:00)
[2023-03-10] MEDS: SPIRONOLACTONE 25 MG TAB PO SCH (09:00)
[2023-03-10] MEDS: MIRALAX *UNIT DOSE* 17GM PACKET PO SCH ×2 (09:00→21:00)
[2023-03-10] MEDS: METAMUCIL (PSYLLIUM) PACKET PO SCH ×2 (09:00→21:00)
[2023-03-10 09:02] VITALS: BP 94/50
[2023-03-10] MEDS: PANTOPRAZOLE 40MG TAB (PROTONIX) PO SCH ×2 (09:20→21:41)
[2023-03-10] MEDS: guaiFENesin ER TABLET 600 MG TAB PO SCH ×2 (09:21→21:41)
[2023-03-10] MEDS: GABAPENTIN 100 MG CAP PO SCH ×3 (09:21→21:41)
[2023-03-10] MEDS: MAGNESIUM OXIDE 400MG TAB (MAG-OX) PO SCH (09:21)
[2023-03-10] MEDS: TAMSULOSIN 0.4 MG CAP PO SCH (09:21)
[2023-03-10] MEDS: MIDODRINE 5 MG TAB PO SCH ×3 (09:21→16:43)
[2023-03-10] MEDS: THIAMINE 100 MG TAB PO SCH (09:21)
[2023-03-10] MEDS: FINASTERIDE 5MG TAB PO SCH (09:21)
[2023-03-10] MEDS: ENOXAPARIN 40MG/0.4ML SYRINGE (J1650 PER 10MG) SC SCH (09:22)
[2023-03-10] MEDS: SENNA 8.6 MG TAB (SENOKOT) PO PRN (09:22)
[2023-03-10 10:09] LABS: ERYTHROCYTE SEDIMENTATION RATE 32 mm/hr (0-20)
[2023-03-10 12:21] LABS: HEMATOCRIT 25.7 % (42.0-52.0); HEMOGLOBIN 8.1 g/dl (13.5-17.5); MEAN CORPUSCULAR HEMOGLOBIN 30.5 pg (27.0-33.0); MEAN CORPUSCULAR HGB CONC 31.5 g/dl (32.0-36.5); MEAN CORPUSCULAR VOLUME 96.6 fl (80.0-96.0); PLATELET COUNT, AUTOMATED 134 10^3/uL (150-450); RED BLOOD COUNT 2.66 10^6/uL (4.30-6.10); WHITE BLOOD COUNT 6.4 10^3/uL (4.0-10.0)
[2023-03-10 12:55] VITALS: BP 104/60
[2023-03-10 13:50] VITALS: BP 97/54; TEMP 97.2; O2SAT 95
[2023-03-10 16:22] LABS: HEMATOCRIT 24.9 % (42.0-52.0); HEMOGLOBIN 7.8 g/dl (13.5-17.5); MEAN CORPUSCULAR HEMOGLOBIN 30.4 pg (27.0-33.0); MEAN CORPUSCULAR HGB CONC 31.3 g/dl (32.0-36.5); MEAN CORPUSCULAR VOLUME 96.9 fl (80.0-96.0); PLATELET COUNT, AUTOMATED 146 10^3/uL (150-450); RED BLOOD COUNT 2.57 10^6/uL (4.30-6.10); WHITE BLOOD COUNT 6.1 10^3/uL (4.0-10.0)
[2023-03-10] MEDS: ACETAMINOPHEN TAB 650MG DOSE (2X325MG) PO PRN (16:43)
[2023-03-10] MEDS ORDERED: ISOVUE-370 76% 100ML VIAL As Ordered ONE (17:17)
[2023-03-10] MEDS: guaiFENesin DM LIQ 10ML UD PO PRN (18:51)
[2023-03-10 20:41] VITALS: BP 108/57; TEMP 97.9; O2SAT 95
[2023-03-11 06:08] VITALS: BP 101/60; TEMP 97.5; O2SAT 96
[2023-03-11 06:59] LABS: IONIZED CALCIUM 5.1 MG/DL (4.5-5.3)
[2023-03-11 07:30] LABS: ALBUMIN 1.7 G/DL (3.2-5.2); ALKALINE PHOSPHATASE 158 U/L (46-116); ALT/SGPT 31 U/L (7.0-40); AST/SGOT 25 U/L (<34); BILIRUBIN,TOTAL 0.4 MG/DL (0.3-1.2); BLOOD UREA NITROGEN 8 MG/DL (9-23); CARBON DIOXIDE LEVEL 30 MMOL/L (20-31); CHLORIDE LEVEL 103 MMOL/L (98-107); CREATININE FOR GFR 0.61 MG/DL (0.70-1.30); GLOMERULAR FILTRATION RATE > 60.0 (>49); GLUCOSE, FASTING 95 MG/DL (74-106); POTASSIUM SERUM 3.8 MMOL/L (3.5-5.1); SODIUM LEVEL 134 MMOL/L (136-145); TOTAL PROTEIN 4.9 G/DL (5.7-8.2)
[2023-03-11 08:23] LABS: HEMOGLOBIN 8.3 g/dl (13.5-17.5); MEAN CORPUSCULAR HEMOGLOBIN 30.9 pg (27.0-33.0); MEAN CORPUSCULAR HGB CONC 31.9 g/dl (32.0-36.5); MEAN CORPUSCULAR VOLUME 96.7 fl (80.0-96.0); PLATELET COUNT, AUTOMATED 138 10^3/uL (150-450); RED BLOOD COUNT 2.69 10^6/uL (4.30-6.10); WHITE BLOOD COUNT 8.9 10^3/uL (4.0-10.0)
[2023-03-11] MEDS: MIDODRINE 5 MG TAB PO SCH ×2 (08:56→11:30)
[2023-03-11] MEDS: GABAPENTIN 100 MG CAP PO SCH (08:56)
[2023-03-11] MEDS: guaiFENesin ER TABLET 600 MG TAB PO SCH (08:56)
[2023-03-11] MEDS: MAGNESIUM OXIDE 400MG TAB (MAG-OX) PO SCH (08:57)
[2023-03-11] MEDS: PANTOPRAZOLE 40MG TAB (PROTONIX) PO SCH (08:57)
[2023-03-11] MEDS: FINASTERIDE 5MG TAB PO SCH (08:57)
[2023-03-11] MEDS: FUROSEMIDE 20 MG TAB PO SCH (09:00)
[2023-03-11] MEDS: SPIRONOLACTONE 25 MG TAB PO SCH (09:00)
[2023-03-11] MEDS: METAMUCIL (PSYLLIUM) PACKET PO SCH (09:00)
[2023-03-11] MEDS: MIRALAX *UNIT DOSE* 17GM PACKET PO SCH (09:00)
[2023-03-11 09:01] VITALS: BP 99/59
[2023-03-11] MEDS: SENNA 8.6 MG TAB (SENOKOT) PO PRN (09:25)
[2023-03-11] MEDS: TAMSULOSIN 0.4 MG CAP PO SCH (09:25)
[2023-03-11] MEDS: THIAMINE 100 MG TAB PO SCH (09:25)
[2023-03-11] MEDS: guaiFENesin DM LIQ 10ML UD PO PRN (09:32)
[2023-03-11] MEDS ORDERED: SENN8.6T58 PO (10:19)
[2023-03-11] MEDS ORDERED: MIDO5TA PO (10:19)
[2023-03-11] MEDS ORDERED: MUCI600T31 PO ×2 (10:19→10:36)
[2023-03-11] MEDS ORDERED: ALDA25TA2 PO (10:19)
[2023-03-11] MEDS ORDERED: MIRA3350 PO (10:19)
[2023-03-11] MEDS ORDERED: PANT40TA29 PO (10:19)
[2023-03-11] MEDS ORDERED: FURO20TA2 PO (10:19)
== END 2023-03-11 11:50 | DRG 871 ==
LOC: M ED 16:32 → M ED INP 18:48 → ENRESERV 23:24 → M PCU 02-28 00:12 → M ICU 02-28 07:53 → M PCU 03-02 18:03 → M MS5PR 03-03 18:45
PROVIDERS: ADMIT Family Medicine; ATTEND Student in an Organized Health Care Education/Training Program
PROC: 30233N1 Transfusion of Nonautologous Red Blood Cells into Peripheral Vein, Percutaneous Approach (ICD-10-PCS; principal; 2023-02-28)
DX: A41.81 Sepsis due to Enterococcus (principal); R65.21 Severe sepsis with septic shock; J15.69 Pneumonia due to other Gram-negative bacteria; E46 Unspecified protein-calorie malnutrition; N39.0 Urinary tract infection, site not specified; E87.20 Acidosis, unspecified; J96.11 Chronic respiratory failure with hypoxia; J44.9 Chronic obstructive pulmonary disease, unspecified; I10 Essential (primary) hypertension; E83.42 Hypomagnesemia; K70.31 Alcoholic cirrhosis of liver with ascites; K21.9 Gastro-esophageal reflux disease without esophagitis; E87.6 Hypokalemia; E83.52 Hypercalcemia; I25.10 Atherosclerotic heart disease of native coronary artery without angina pectoris; B96.4 Proteus (mirabilis) (morganii) as the cause of diseases classified elsewhere; D64.9 Anemia, unspecified; N40.0 Benign prostatic hyperplasia without lower urinary tract symptoms; Z95.2 Presence of prosthetic heart valve; K59.00 Constipation, unspecified; Z88.8 Allergy status to other drugs, medicaments and biological substances; Z79.899 Other long term (current) drug therapy; Z98.41 Cataract extraction status, right eye; Z98.42 Cataract extraction status, left eye

== ENCOUNTER → 2023-03-19 | Outpatient (REF) | payer MEDICARE, MEDICAID ==
[~2023-03-19] MED LIST: ALBU8.5H INH; ALDA25TA2 PO; D 50CAP2 PO; DOCU100C16 PO; FINA5TAB2 PO; FURO20TA2 PO; FURO40TA2 PO; GABA-1171 PO; MAGN400T2 PO; MIDO5TA PO; MIRA3350 PO; MUCI600T31 PO; NADO20TA PO; PANT40TA29 PO; SENN8.6T58 PO; SIMV; SIMVASTATIN 80 MG PO; SPIR100T3 PO; TAMS1CAP17 PO; THIA100T22 PO
[2023-03-19 09:36] LABS: MEAN CORPUSCULAR HEMOGLOBIN 30.3 pg (27.0-33.0); MEAN CORPUSCULAR HGB CONC 32.1 g/dl (32.0-36.5); MEAN CORPUSCULAR VOLUME 94.3 fl (80.0-96.0); PLATELET COUNT, AUTOMATED 252 10^3/uL (150-450); RED BLOOD COUNT 2.97 10^6/uL (4.30-6.10); WHITE BLOOD COUNT 8.4 10^3/uL (4.0-10.0)
[2023-03-19 09:49] LABS: INR 1.2; PROTHROMBIN TIME 14.9 SECONDS (12.5-14.5)
[2023-03-19 09:59] LABS: ALBUMIN 2.4 G/DL (3.2-5.2); ALKALINE PHOSPHATASE 199 U/L (46-116); ALT/SGPT 37 U/L (7.0-40); AST/SGOT 28 U/L (<34); BILIRUBIN,DIRECT 0.2 MG/DL (<0.4); BILIRUBIN,TOTAL 0.3 MG/DL (0.3-1.2); BLOOD UREA NITROGEN 12 MG/DL (9-23); CALCIUM LEVEL 7.9 MG/DL (8.3-10.6); CARBON DIOXIDE LEVEL 25 MMOL/L (20-31); CHLORIDE LEVEL 106 MMOL/L (98-107); CREATININE FOR GFR 0.69 MG/DL (0.70-1.30); GLOMERULAR FILTRATION RATE > 60.0 (>49); GLUCOSE, FASTING 124 MG/DL (74-106); POTASSIUM SERUM 3.9 MMOL/L (3.5-5.1); SODIUM LEVEL 140 MMOL/L (136-145); TOTAL PROTEIN 6.2 G/DL (5.7-8.2)
== END ==
LOC: SKLAB4 07:59
PROVIDERS: ATTEND Internal Medicine
DX: E78.5 Hyperlipidemia, unspecified (principal); I10 Essential (primary) hypertension; G62.9 Polyneuropathy, unspecified

== ENCOUNTER → 2023-05-02 | Day surgery (SDC) | payer MEDICARE, MEDICAID ==
[~2023-05-02] VITALS: Ht 170.2 cm; Wt 57.2 kg
[~2023-05-02] MED LIST changes: +KETOROLAC 60MG 2ML VIAL As Ordered ONE; +LIDOCAINE 1% SDV 5ML VIAL SC PRN; +LIDOCAINE 2% 100MG/5ML SDV (FOR ANES.) As Ordered ONE; +LIDOCAINE 2% 5ML JELLY UROJET As Ordered ONE; +LR 1,000 ML IV SCH; +MIDAZOLAM INJ 2MG/2ML VIAL As Ordered ONE; +OXYC1TAB23 PO; +SPIR-10 PO; +ceFAZolin SOD 2 GM in IV 1 EA IV ONE; +fentaNYL 100 MCG/2 ML INJECTION As Ordered ONE; +propofoL 200 MG/20 ML VIAL As Ordered ONE
[2023-05-02 09:57] VITALS: BP 103/60; TEMP 97.1; O2SAT 95
== END | disposition home or self-care (01) ==
LOC: M SDC 06:20
PROVIDERS: ATTEND Urology
DX: N20.0 Calculus of kidney (principal); I10 Essential (primary) hypertension; I25.2 Old myocardial infarction; J44.9 Chronic obstructive pulmonary disease, unspecified; Z95.5 Presence of coronary angioplasty implant and graft; E78.00 Pure hypercholesterolemia, unspecified; Z79.899 Other long term (current) drug therapy; Z88.8 Allergy status to other drugs, medicaments and biological substances; Z88.1 Allergy status to other antibiotic agents; Z88.5 Allergy status to narcotic agent; Z99.81 Dependence on supplemental oxygen
CPT/HCPCS: 50590; 52332; 74018; C1769; C2617; J0690; J1885; J2250; J3010

== ENCOUNTER 2025-02-04 06:12 | Day surgery (SDC) | payer MEDICARE, MEDICAID ==
[~2025-02-04] VITALS: Ht 170.2 cm; Wt 67.6 kg
[~2025-02-04 06:12] MED LIST changes: +HYDR-3363 PO; -KETOROLAC 60MG 2ML VIAL As Ordered ONE; -LIDOCAINE 1% SDV 5ML VIAL SC PRN; -LIDOCAINE 2% 100MG/5ML SDV (FOR ANES.) As Ordered ONE; -LIDOCAINE 2% 5ML JELLY UROJET As Ordered ONE; -LR 1,000 ML IV SCH; -MIDAZOLAM INJ 2MG/2ML VIAL As Ordered ONE; -NADO20TA PO; +NADO20TA38 PO; +OXYC-517 PO; +TREL1AER INH; -ceFAZolin SOD 2 GM in IV 1 EA IV ONE; -fentaNYL 100 MCG/2 ML INJECTION As Ordered ONE; -propofoL 200 MG/20 ML VIAL As Ordered ONE
[2025-02-04] MEDS ORDERED: KETAMINE HCL 200 MG/20 ML VIAL As Ordered ONE (07:09)
[2025-02-04] MEDS ORDERED: ONDANSETRON 4MG 2ML VIAL As Ordered ONE (07:10)
[2025-02-04] MEDS ORDERED: GLYCOPYRROLATE INJ 0.2 MG/ML 2 ML VIAL As Ordered ONE (07:10)
[2025-02-04] MEDS ORDERED: MIDAZOLAM INJ 2 MG/2 ML VIAL As Ordered ONE (07:10)
[2025-02-04] MEDS ORDERED: LIDOCAINE 2% 100 MG/5 ML SDV (FOR ANES.) As Ordered ONE (07:10)
[2025-02-04] MEDS ORDERED: ACETAMINOPHEN 1000MG/100ML IV BAG As Ordered ONE (07:10)
[2025-02-04] MEDS ORDERED: LR 1,000 ML IV SCH (07:25)
[2025-02-04] MEDS: ceFAZolin SOD 2 GM IV ONCE IV ONE (07:36)
[2025-02-04] MEDS: LIDOCAINE 2% 5 ML JELLY UROJET As Ordered ONE (07:53)
[2025-02-04 09:30] VITALS: BP 110/50; TEMP 97; O2SAT 95
== END 2025-02-04 09:49 | disposition home or self-care (01) ==
LOC: M SDC 06:12
PROVIDERS: ATTEND Urology
DX: N20.0 Calculus of kidney (principal); N32.89 Other specified disorders of bladder; J44.9 Chronic obstructive pulmonary disease, unspecified; I10 Essential (primary) hypertension; E78.00 Pure hypercholesterolemia, unspecified; I25.2 Old myocardial infarction; Z79.899 Other long term (current) drug therapy; Z79.51 Long term (current) use of inhaled steroids; Z79.82 Long term (current) use of aspirin; Z95.5 Presence of coronary angioplasty implant and graft; Z87.891 Personal history of nicotine dependence; Z88.1 Allergy status to other antibiotic agents; Z88.8 Allergy status to other drugs, medicaments and biological substances; Z88.5 Allergy status to narcotic agent
CPT/HCPCS: 50590; 74018; J0131; J0690; J1596; J2250; J2405; J3010

== ENCOUNTER 2025-03-10 05:59 | Day surgery (SDC) | payer MEDICARE, MEDICAID ==
[~2025-03-10] VITALS: Ht 170.2 cm; Wt 68.9 kg
[~2025-03-10 05:59] MED LIST changes: +LACT10SO94
[2025-03-10] MEDS ORDERED: LIDOCAINE 2% 100 MG/5 ML SDV (FOR ANES.) As Ordered ONE (07:06)
[2025-03-10] MEDS ORDERED: ROCURONIUM BROMIDE 50MG/5ML VIAL As Ordered ONE (07:06)
[2025-03-10] MEDS ORDERED: MIDAZOLAM INJ 2 MG/2 ML VIAL As Ordered ONE (07:07)
[2025-03-10] MEDS ORDERED: ONDANSETRON 4MG 2ML VIAL As Ordered ONE (07:42)
[2025-03-10] MEDS ORDERED: dexAMETHasone 4 MG/ML 1 ML VIAL As Ordered ONE (07:42)
[2025-03-10] MEDS ORDERED: ACETAMINOPHEN 1000MG/100ML IV BAG As Ordered ONE (07:42)
[2025-03-10] MEDS: ceFAZolin SOD 2 GM IV ONCE IV ONE (08:08)
[2025-03-10] MEDS ORDERED: SUGAMMADEX SODIUM 500 MG/5 ML VIAL As Ordered ONE (08:17)
[2025-03-10] MEDS ORDERED: ONDANSETRON 4MG 2ML VIAL IV PRN (08:30)
[2025-03-10] MEDS ORDERED: HYDROMORPHONE HCL 0.5 MG/0.5 ML SYRINGE IV PRN (08:30)
[2025-03-10] MEDS ORDERED: CIPR-249 PO (08:54)
[2025-03-10 09:30] VITALS: BP 178/80; TEMP 96.7; O2SAT 99
[2025-03-10] MEDS ORDERED: LR 1,000 ML IV SCH (10:35)
== END 2025-03-10 09:56 | disposition home or self-care (01) ==
LOC: M SDC 05:59
PROVIDERS: ATTEND Urology
DX: C67.9 Malignant neoplasm of bladder, unspecified (principal); I10 Essential (primary) hypertension; Z98.61 Coronary angioplasty status; I25.2 Old myocardial infarction; E78.5 Hyperlipidemia, unspecified; J44.9 Chronic obstructive pulmonary disease, unspecified; Z79.51 Long term (current) use of inhaled steroids; Z79.899 Other long term (current) drug therapy; Z79.82 Long term (current) use of aspirin; Z87.891 Personal history of nicotine dependence; Z88.1 Allergy status to other antibiotic agents; Z88.8 Allergy status to other drugs, medicaments and biological substances
CPT/HCPCS: 52235; 88307; C1769; J0131; J0688; J1100; J2250; J2405; J3010